=== PATIENT | male | born 2000 | race Caucasian/White ===

== ENCOUNTER 2021-07-02 11:07 | Emergency (ER) | payer BC, SELFPAY ==
[2021-07-02 11:26] VITALS: BP 136/66; PULSE 50; RESP 16; TEMP 37.1; O2SAT 100
--- NOTE | 2021-07-02 11:34 | PC.NURSE ---
1125-Pt has itchy, red, raised grouped rash noted to Lt arm, neck, bilateral cheeks, left ear and lt chest.
--- NOTE | 2021-07-02 11:43 | ED.SKABFB ---
HPI - Skin/Abscess/Foreign Bdy General Chief complaint: Skin/Abscess/Foreign Body Stated complaint: Rash Time Seen by Provider: 07/02/21 11:36 Source: patient and RN notes reviewed Mode of arrival: ambulatory Limitations: no limitations History of Present Illness HPI narrative: Patient presents today complaining of 2-day history of a rash to the face, neck, chest, bilateral arms after moving brush and weeds. Seems to be getting worse. He has tried some topical spray and lye soap without relief. MD complaint: rash Related Data Allergies Allergy/AdvReac Type Severity Reaction Status Date / Time No Known Allergies Allergy Verified 07/02/21 11:28 Review of Systems Review of Systems: CONSTITUTIONAL: Denies body aches, fever, chills, or sweats. EYES: Denies visual changes, redness, or discharge. ENT: Denies rhinorrhea, congestion, sore throat, or otalgia. CARDIOVASCULAR: Denies chest pain, palpitations, or edema. RESPIRATORY: Denies cough or dyspnea. GASTROINTESTINAL: Denies abdominal pain, nausea, vomiting, or diarrhea. GENITOURINARY: Denies dysuria or hematuria. SKIN: Denies wounds.+ Pruritic rash MUSCULOSKELETAL: Denies back pain, joint pain, or myalgia. NEUROLOGIC: Denies headache, numbness, tingling, or weakness. PSYCH: Denies depression or anxiety. PMFSH Comments At time of signature, I have reviewed and agree with nursing past medical, surgical, social and family history unless otherwise noted. Please see nursing chart for further information. There is no relevant family history pertinent to the presenting complaint Exam Narrative: GENERAL: Well-appearing, well-nourished, and in no acute distress. HEAD: Normocephalic, atraumatic. EYES: EOMI. No redness or drainage. Conjunctivae normal. ENT: Mucous membranes pink and moist. NECK: Normal AROM. CHEST: No respiratory distress. EXTREMITIES: Normal range of motion. No edema. SKIN: Warm, dry. Capillary refill normal. Normal skin turgor. Mildly erythematous maculopapular rash in large patches to the bilateral upper and lower arms, anterior neck, upper chest, and entire face. NEURO: No focal deficits. Alert and oriented x3. Gait steady. PSYCH: Normal affect. No signs of depression or anxiety. Course Vital Signs Vital signs: Vital Signs Temperature 98.7 F 07/02/21 11:26 Pulse Rate 50 L 07/02/21 11:26 Respiratory Rate 16 07/02/21 11:26 Blood Pressure 136/66 07/02/21 11:26 Pulse Oximetry 100 07/02/21 11:26 Temperature 98.7 F 07/02/21 11:26 Pulse Rate 50 L 07/02/21 11:26 Respiratory Rate 16 07/02/21 11:26 Blood Pressure 136/66 07/02/21 11:26 Pulse Oximetry 100 07/02/21 11:26 Reviewed. Pt has been instructed to follow up with his PCP regarding his elevated blood pressure today. MDM - Skin/Abscess/Foreign Bdy Differential Diagnosis Differential diagnosis: Likely abscess of skin or subcutaneous tissue, viral exanthem, urticaria, cellulitis, eczema, insect bites, impetigo and contact dermatitis Critical Care Time Critical Care Time Critical Care Time: No Discharge Plan Discharge Clinical Impression: Contact dermatitis Qualifiers: Contact dermatitis type: unspecified Contact dermatitis trigger: unspecified trigger Qualified Code(s): L25.9 - Unspecified contact dermatitis, unspecified cause Patient Disposition: Home, Self-Care Condition: Stable Instructions: Contact Dermatitis (DC) Additional Instructions: Please take the prednisone as prescribed until gone. Take Benadryl or another antihistamine for itching. You may also continue to use topical medications as needed. Follow-up with your doctor in 3 to 4 days if symptoms are not improving. Your blood pressure was elevated above 120/80 today at Urgent Care. This puts you above the threshold for follow up. Please schedule a followup visit with your personal physician as soon as possible, for further evaluation and treatment. Even blood pressure exceeding 120/80 ma
== END 2021-07-02 11:50 | disposition home or self-care (01) ==
PROVIDERS: Emergency Provider Nurse Practitioner; PCP Pediatrics
DX: L25.9 Unspecified contact dermatitis, unspecified cause (principal)
CPT/HCPCS: 99213; G0463

== ENCOUNTER 2022-07-05 14:03 | Emergency (ER) | payer BC, SELFPAY ==
[2022-07-05 14:16] VITALS: BP 149/86; PULSE 72; RESP 18; TEMP 36.2; O2SAT 100
--- NOTE | 2022-07-05 14:22 | ED.GENADULT ---
HPI - General Adult General Chief complaint: Skin/Abscess/Foreign Body Stated complaint: insect bite rt arm History of Present Illness HPI narrative: 22 y/o male. PMHx none reported. Presents to [facility] today with acute complaints of RT forearm insect bite, worsening irritation in the past 72 hours. Client tells me that he had been outside mowing long grass, and manifestations started shortly thereafter. He did not actually visualize culprit. He reports increased redness, localized irritation, and 'burning' to site. Non-diabetic. No open wounds or discharge. No dyspnea, wheezing. No additional areas of integumentary involvement. He has not yet sought out medical evaluation until now, today. No additional acute c/o upon PE. Related Data Allergies Allergy/AdvReac Type Severity Reaction Status Date / Time No Known Allergies Allergy Verified 07/05/22 14:18 Review of Systems Review of Systems: CONSTITUTIONAL: Denies fever, chills, sweats. EYES: Denies visual changes, redness, discharge. ENT: Denies rhinorrhea, congestion, sore throat, otalgia. CARDIOVASCULAR: Denies chest pain, palpitations, edema. RESPIRATORY: Denies dyspnea, wheezing, cough GASTROINTESTINAL: Denies abdominal pain, nausea, vomiting, diarrhea. GENITOURINARY: Denies dysuria, hematuria, abnormal discharge SKIN: No rash. Insect bite and redness RT forearm. MUSCULOSKELETAL: Denies acute back pain, joint pain, or myalgia. NEUROLOGIC: Denies numbness, or focal weakness. PSYCHIATRIC: Denies anxiety or depression. Exam Narrative: GENERAL: This is a well-nourished, well-developed adult, in no apparent distress. HEAD: normocephalic. EYES: Sclera clear/white. NOSE: External nose normal. THROAT: Mucous membranes moist. NECK: Neck supple. CARDIOVASCULAR: Regular rate and rhythm. Good pulse RUE. RESPIRATORY: Clear to auscultation. GASTROINTESTINAL: Abdomen soft. SKIN: warm, intact. With 1 cm insect bite located to proximal RT forearm. There is mild erythema, warmth, & soft tissue swelling to site, extends briefly to mid-forearm. No fluctuance, no residual FB, no compartmental concerns. There are no necrotic tissue changes, no active discharge. Surrounding tissue blanches well. NEURO: Alert & age appropriate. No focal neurologic deficits. EXTREMITIES: Full and unrestricted ROM LUE. No bony tenderness or deficits. Course Course Level of Care: Express Care Visit Vital Signs Vital signs: Vital Signs Temperature 36.2 C L 07/05/22 14:16 Pulse Rate 72 07/05/22 14:16 Respiratory Rate 18 07/05/22 14:16 Blood Pressure 149/86 H 07/05/22 14:16 Pulse Oximetry 100 07/05/22 14:16 Oxygen Delivery Room Air 07/05/22 14:16 Temperature 36.2 C L 07/05/22 14:16 Pulse Rate 72 07/05/22 14:16 Respiratory Rate 18 07/05/22 14:16 Blood Pressure 149/86 H 07/05/22 14:16 Pulse Oximetry 100 07/05/22 14:16 Oxygen Delivery Room Air 07/05/22 14:16 Medical Decision Making MDM Narrative Medical decision making narrative: -DX: Cellulitis, suspect insect culprit. -No residual FB, no necrosis, no compartmental concerns. -Start oral OP Bactrim regimen as directed. -Medrol does pk as directed. -Topical Mupirocin to site and daily site care until healed. -PCP F/U Wound re-check 1 week. -ER W/Emergent status changes. Pt agrees. Differential Diagnosis Differential Diagnosis: Differential Diagnosis: Consideration of the following conditions may be warranted for the presenting problem, they are not final diagnoses: Cellulitis, Folliculitis, Contact dermatitis, Insect bite, Psoriasis, Dyshidrotic eczema, or other. Vital Signs Vital Signs: Vital Signs Temperature 36.2 C L 07/05/22 14:16 Pulse Rate 72 07/05/22 14:16 Respiratory Rate 18 07/05/22 14:16 Blood Pressure 149/86 H 07/05/22 14:16 Pulse Oximetry 100 07/05/22 14:16 Oxygen Delivery Room Air 07/05/22 14:16 Temperature 36.2 C L 07/05
== END 2022-07-05 14:25 | disposition home or self-care (01) ==
PROVIDERS: Emergency Provider Nurse Practitioner Adult Health
DX: L03.113 Cellulitis of right upper limb (principal)
CPT/HCPCS: 99213; G0463